=== PATIENT | male | born 1960 | race Caucasian/White ===

== ENCOUNTER 2021-06-28 17:46 | Emergency (ER) | payer MEDICAID ==
[~2021-06-28] VITALS: Ht 185.4 cm; Wt 72.0 kg
[2021-06-28] MEDS ORDERED: HYDROcodone/APAP 5/325 TABLET PO ONE (19:00)
[2021-06-28] MEDS ORDERED: PLEASE ENTER ALLERGIES MC SCH (19:00)
[2021-06-28] MEDS ORDERED: HYDROcodone/APAP 5/325 TABLET ONE (19:13)
[2021-06-28 20:10] VITALS: BP 120/68
--- NOTE | 2021-06-28 20:32 | NUR ---
F/U AND D/C INSTRUCTIONS WITH PRESCRIPTIONS GIVEN TO PT AND HE V/U. PT PROVIDED A TAXI VOUCHER TO GET [facility] NEED[facility] TO [facility] TO. PT A&OX4, NO ACUTE DISTRESS, AND RIGHT ARM IN SPLINT.
== END 2021-06-28 20:35 | disposition home or self-care (01) ==
LOC: ED 19:12
DX: S63.522A Sprain of radiocarpal joint of left wrist, initial encounter (principal); W18.30XA Fall on same level, unspecified, initial encounter; Y93.89 Activity, other specified; Y92.009 Unspecified place in unspecified non-institutional (private) residence as the place of occurrence of the external cause; Y99.8 Other external cause status
CPT/HCPCS: 29125; 99284